=== PATIENT | female | born 1955 | race Caucasian/White ===

== ENCOUNTER 2023-05-11 13:50 | Emergency (ER) | payer MEDICARE, OTHER, SELFPAY ==
[2023-05-11 14:01] VITALS: BP 126/80
--- NOTE | 2023-05-11 15:14 | ED.GENMED ---
History of Present Illness
General
Chief Complaint: Weakness
Time Seen by Provider: 05/11/23 14:51
Travel History
Have you had any contact with someone who has COVID-19?: No
Do you have any symptoms of coronavirus? Fever > 100 degrees, chills, cough, shortness of breath, sore throat, loss of taste or smell, muscle aches, or headache?: No
History of Present Illness
History of Present Illness:
67-year-old female presents the emergency department for evaluation of paresthesias to bilateral lower legs over the past week. She states the symptoms initially affected the feet and ankles but now are trending upward toward the gluteal region.
She also reports general weakness but has no difficulty walking. She denies any recent flu or COVID vaccinations within the past 4 to 6 weeks. Denies any recent upper respiratory tract infections. Denies any associated fevers or chills. No new
medications whatsoever. Has been newly diagnosed with 'long COVID' by neurology at [facility]
Past History
Past History
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
ED Past Surgical History: and Other
Social History
Tobacco: Non-smoker
Alcohol: None
Personal: Single
Living: alone
Employment: Retired
Family History
Family History: Other (mother with hypertension)
Review of Systems
Review of Systems
Allergies reviewed?: Yes
All Other Systems: ROS reviewed and negative except as documented in HPI and ROS
Phy Exam
Physical Exam
Physical Exam:
GEN: Well appearing, NAD, WDWN
HEENT: Oral mucosa moist, no scleral icterus, no nasal congestion
Cardiac: Regular rate
Lung: No respiratory distress, no tachypnea
MSK: No gross deformity or injuries
Skin: Good color, no pallor or jaundice, no rashes
Neuro: AO x3; CN II-XII grossly intact. BUE strength 5/5 in all meng, sensation intact and symmetric. BLE strength 5/5 in all meng, sensation intact and symmetric. Patellar reflexes 2+ bilaterally, gait steady with no deficit
Psych: Calm, cooperative
Course
Vital Signs
Initial and Last Documented VS:
Initial Vital Signs
Temp Pulse Resp BP Pulse Ox
97.9 F 100 18 126/80 98
05/11/23 14:01 05/11/23 14:01 05/11/23 14:01 05/11/23 14:01 05/11/23 14:01
Last Documented Vital Signs
Temp Pulse Resp BP Pulse Ox
97.9 F 84 18 122/63 99
05/11/23 14:01 05/11/23 15:45 05/11/23 15:45 05/11/23 15:45 05/11/23 15:45
MDM/Problems Addressed
MDM/Problems Addressed:
Patient with no objective neurologic deficits on physical exam. Certainly the presentation of ascending paresthesias concerning for Guillain-Arenas� syndrome, although she has no preceding viral illness or vaccination to suggest the source of this.
I discussed the case with neurology on-call who feels that the risk of lumbar puncture and IVIG is too great at this time given lack of disabling deficits. Patient will be discharged outpatient neurologic follow-up, educated her regarding bladder
symptoms that could be a warning sign of ascending symptoms versus worsening gait deficit that would prompt ED evaluation
*Critical Care Note
Total Time (30-74mins, 75-104mins- exclusive of procedures): Not Applicable
ED Attending Note
-
Portions of this chart may have been created with voice recognition software.� Occasional wrong word or��sound alike� substitutions may have occurred due to the inherent limitations of voice recognition software.
Discharge Plan
Departure
Patient Disposition: Home (Routine Discharge)
Date of Disposition: 05/11/23
Time of Disposition: 15:25
Patient with high blood pressure during this ER visit?: No
Discharge Problem:
Bilateral leg paresthesia
Instructions: Paresthesia (DC)
Prescriptions:
No Action
citalopram 20 MG tablet
40 mg PO DAILY
montelukast 10 MG tablet
10 mg PO QPM
prednisone 10 MG tablet
10 mg PO DAILY
bupropion HCl 100 MG tablet
100 mg PO DAILY
albuterol sulfate [ProAir RespiClick] 90 MCG aerosol powdr breath activated
2 inh inhalation PRN PRN (Reason: sob)
acetaminophen 325 MG tablet
650 mg PO Q4H PRN (Reason: pain)
mometasone-formoterol [Dulera] 1 PUFF HFA aerosol inhaler
2 puff inhalation BID
oxycodone 5 MG tablet
5 mg PO Q4HPRN PRN (Reason: breakthrough/severe pain) Qty: 10 0RF
hydrocortisone 10 MG tablet
25 mg PO Q6H Qty: 22 0RF
oxycodone-acetaminophen 5 MG/325 MG tablet
1 tab PO Q6HPRN PRN (Reason: pain) Qty: 12 0RF
Activity Restrictions/Additional Instructions:
At this point the cause of your symptoms is not clear however there are no obvious neurologic deficits on your exam
Guillain-Arenas� syndrome remains a possibility however at this point the risk of a lumbar puncture and treatment far exceeds the potential benefits given your lack of severe symptoms
Please monitor for worsening to include continued progression of numbness toward the face, loss of bladder or bowel function including retention of urine, or difficulty walking; if any of the symptoms develop return to the emergency department for
reevaluation immediately
Follow-up as an outpatient with your [place] neurologist
Interventions
Interventions:
*Risk Screen - Suicide Last Done: 05/11/23 14:01
*General Assessment Last Done: 05/11/23 14:01
*Neglect/Abuse Screening Last Done: 05/11/23 14:01
ED- Fall Risk Assessment Last Done: 05/11/23 15:45
*ED COVID-19 Vaccine History Last Done: 05/11/23 14:07
*Nursing Disposition Last Done: 05/11/23 15:45
ED- Cardiac Assessment Last Done: 05/11/23 15:45
ED- Neurological Assessment Last Done: 05/11/23 15:45
ED- Pulmonary Assessment Last Done: 05/11/23 15:45
Discharge Date and Time
Discharge Date/Time: 05/11/23 15:51
[2023-05-11 15:45] VITALS: BP 122/63
== END 2023-05-11 15:51 | disposition home or self-care (01) ==
LOC: EMR 13:50
PROVIDERS: EMERGENCY PHYSICIAN Emergency Medicine; FAMILY PHYSICIAN Nurse Practitioner Adult Health
DX: R20.2 Paresthesia of skin (principal); R53.1 Weakness
CPT/HCPCS: 99282

== ENCOUNTER 2023-12-20 14:34 | Emergency (ER) | payer MEDICARE, OTHER, SELFPAY ==
[2023-12-20 14:37] VITALS: BP 117/96
[2023-12-20 15:09] LABS: % Basophils 0.1 % (0-2); % Immature Granulocytes 0.1 % (0-0.5); % Lymphocytes 29.1 % (20.5-51.1); % Neutrophils 65.7 % (42.2-75.2); Absolute Lymphocytes 2.5 10^3/uL (1.2-3.4); Absolute Monocytes 0.4 10^3/uL (0.1-0.6); Absolute Neutrophils 5.5 10^3/uL (1.4-6.5); Hematocrit 36.4 % (37.0-47.0); Hemoglobin 12.5 g/dL (12.0-16.0); Mean Corp Hgb Conc. 34.3 g/dL (33.0-37.0); Mean Corpuscular Hgb 31.1 pg (27.0-31.0); Mean Corpuscular Volume 90.5 fL (81.0-99.0); Mean Platelet Volume 9.2 fL (7.4-10.4); Nucleated Red Blood Cells % 0 %; Platelet Count 372 10^3/uL (130-400); Red Blood Cell Count 4.02 10^6/uL (4.20-5.40); Red Cell Dist. Width 12.4 % (11.5-14.5); White Blood Cell Count 8.4 10^3/uL (4.8-10.8)
[2023-12-20 15:16] LABS: ALT (SGPT) 22 U/L (0-35); AST (SGOT) 23 U/L (14-36); Albumin 4.5 g/dl (3.5-5.0); Alkaline Phosphatase 62 U/L (38-126); Blood Urea Nitrogen 23 mg/dl (7-17); Calcium 9.8 mg/dl (8.4-10.2); Carbon Dioxide 24 mmol/L (22-30); Chloride 104 mmol/L (98-107); Glucose 118 mg/dl (70-99); Potassium 4.7 mmol/L (3.5-5.1); Sodium 143 mmol/L (135-145); Total Bilirubin 0.5 mg/dl (0.2-1.3); Total Protein 7.1 g/dl (6.3-8.2); eGFR > 60.00
[2023-12-20 16:15] VITALS: BMI 22.7
[2023-12-20 16:18] VITALS: BP 134/76
--- NOTE | 2023-12-20 16:20 | EDRN ---
Dr. Mauricio in room w/pt at this time.
--- NOTE | 2023-12-20 16:34 | ED.GENMED ---
History of Present Illness
General
Chief Complaint: Fatigue
Source: patient
Exam Limitations: none
Time Seen by Provider: 12/20/23 15:52
Nursing documentation reviewed up to this point in time: agreed with
History of Present Illness
History of Present Illness:
Patient with history of adrenal insufficiency diagnosed 3 years ago and eosinophilic asthma, presents to ED secondary to worsening generalized fatigue, weakness, muscle pain, along with intermittent vomiting, after she was taken off prednisone 2
weeks ago. Patient states that she has been on prednisone for the past 5 years to control her symptoms related to eosinophilic asthma. Finally, when her symptoms improved significantly, her aviation medicine specialist at [facility]
decided that she should be tapered off prednisone. Since prednisone was discontinued, approximately 2 days afterwards, patient started to experience aforementioned symptoms. Patient spoke with her aviation medicine specialist yesterday who explained to the
patient that she may be experiencing prednisone withdrawal symptoms. Patient's aviation medicine specialist is currently working to schedule appointment with an plastic tool maker for patient to receive formal consultation. Denies fever or chills. Denies chest
pain or shortness of breath. Denies back pain. However, patient does report decreased appetite and feels dehydrated.
Past History
Past History
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
ED Past Surgical History: and Other
Social History
Tobacco: Non-smoker
Alcohol: None
Personal: Single
Living: alone
Employment: Retired
Family History
Family History: Other (mother with hypertension)
Review of Systems
Review of Systems
Allergies reviewed?: Yes
All Other Systems: ROS reviewed and negative except as documented in HPI and ROS
Constitutional: Reports no symptoms; Denies fever
Respiratory: Reports no symptoms; Denies trouble breathing
Cardiac: Reports no symptoms; Denies chest pain
ABD/GI: Reports nausea and vomiting; Denies abdominal pain
Musculoskeletal: Reports muscle pain
Skin: Reports no symptoms
Neurological: Reports weakness
Phy Exam
Physical Exam
Physical Exam:
Physical Exam
General: no apparent distress, not acutely ill. afebrile
Head: nc/at. eomi
Neck: supple. no meningeal signs.
Heart: s1/s2 regular rate and rhythm, no murmur. equal radial pulses.
Lungs: no acute respiratory distress. clear bilaterally
Abdomen: normal bowel sounds. not tender. no distention
Neuro: alert and oriented. no focal neurological deficits
Skin: no rash
Psychiatric: well kept. interactive and cooperative
Extremities: no edema. no calf tenderness.
Course
Orders/Labs/Results
Orders:
Orders
12/20/23 14:48
Complete Blood Count/With Diff Urgent
Comprehensive Metabolic Panel Urgent
Cortisol, Random Urgent
Comment: ADD ON
Magnesium Urgent
Comment: ADD ON
TSH Reflex To Free T4 Urgent
Comment: ADD PN
12/20/23 16:31
Add On- LAB Urgent
Tests Added?: magnesium, TSH to reflex Free T4, random cortisol level
0.9% Sodium Chloride 1000 ml [Nss] 1,000 ml IV BOLUS
Abnormal Lab Results
12/20/23
14:48
RBC 4.02 L 10^6/uL
(4.20-5.40)
Hct 36.4 L %
(37.0-47.0)
MCH 31.1 H pg
(27.0-31.0)
BUN 23 H mg/dl
(7-17)
Glucose 118 H mg/dl
(70-99)
12/20/23 14:48
12/20/23 14:48
Vital Signs
Initial and Last Documented VS:
Initial Vital Signs
Temp Pulse Resp BP Pulse Ox
97.6 F 104 18 117/96 99
12/20/23 14:37 12/20/23 14:37 12/20/23 14:37 12/20/23 14:37 12/20/23 14:37
Last Documented Vital Signs
Temp Pulse Resp BP Pulse Ox
97.6 F 75 16 131/78 98
12/20/23 14:37 12/20/23 17:14 12/20/23 16:18 12/20/23 17:14 12/20/23 17:14
MDM/Problems Addressed
MDM/Problems Addressed:
History and exam consistent with likely steroid withdrawal symptoms. Fortunately, patient is afebrile, hemodynamically stable, and without any acute neurological symptoms. Blood work, including CBC and metabolic panel, within normal limits. After
discussion, decision made to start the patient back on low-dose of prednisone, along with outpatient follow-up. Patient will be given IV fluids prior to discharge.
*Critical Care Note
Total Time (30-74mins, 75-104mins- exclusive of procedures): Not Applicable
ED Attending Note
-
Portions of this chart may have been created with voice recognition software.� Occasional wrong word or��sound alike� substitutions may have occurred due to the inherent limitations of voice recognition software.
Discharge Plan
Departure
Patient Disposition: Home (Routine Discharge)
Date of Disposition: 12/20/23
Time of Disposition: 17:08
Patient with high blood pressure during this ER visit?: Yes
Discharge Problem:
Adrenal insufficiency due to steroid withdrawal
Instructions: Drug Withdrawal (DC)
Prescriptions:
New
prednisone 5 mg tablet
5 mg PO DAILY Qty: 14 0RF
No Action
citalopram 20 MG tablet
40 mg PO DAILY
montelukast 10 MG tablet
10 mg PO QPM
prednisone 10 MG tablet
10 mg PO DAILY
bupropion HCl 100 MG tablet
100 mg PO DAILY
albuterol sulfate [ProAir RespiClick] 90 MCG aerosol powdr breath activated
2 inh inhalation PRN PRN (Reason: sob)
acetaminophen 325 MG tablet
650 mg PO Q4H PRN (Reason: pain)
mometasone-formoterol [Dulera] 1 PUFF HFA aerosol inhaler
2 puff inhalation BID
oxycodone 5 MG tablet
5 mg PO Q4HPRN PRN (Reason: breakthrough/severe pain) Qty: 10 0RF
hydrocortisone 10 MG tablet
25 mg PO Q6H Qty: 22 0RF
oxycodone-acetaminophen 5 MG/325 MG tablet
1 tab PO Q6HPRN PRN (Reason: pain) Qty: 12 0RF
Referrals:
Susanna March CRNP [Family Provider] -
Activity Restrictions/Additional Instructions:
As discussed, please follow-up with your aviation medicine specialist and/or plastic tool maker for further evaluation and treatment. Your prescription has been sent electronically to [facility] pharmacy in [place]
Interventions
Interventions:
*Risk Screen - Suicide Last Done: 12/20/23 14:37
*General Assessment Last Done: 12/20/23 14:37
*Neglect/Abuse Screening Last Done: 12/20/23 14:37
ED- Fall Risk Assessment Last Done: 12/20/23 16:15
*ED COVID-19 Vaccine History Last Done: 12/20/23 16:15
*Nursing Disposition Last Done: 12/20/23 16:50
Discharge Date and Time
Discharge Date/Time: 12/20/23 18:02
Print Language: SAMI
[2023-12-20] MEDS: NSS 1000 IV (16:47)
--- NOTE | 2023-12-20 17:03 | EDRN ---
Pt will be going to RP consult room at this time w/report given to Epifanio at this time. Pt is pending discharge after IVF bolus of 1L of NSS.
[2023-12-20 17:14] VITALS: BP 131/78
[2023-12-20 19:13] LABS: Cortisol, Random 11.1 ug/dl; TSH Reflex To Free T4 0.66 uIU/ml (0.47-4.68)
== END 2023-12-20 18:02 | disposition home or self-care (01) ==
LOC: EMR 14:34
PROVIDERS: Emergency Medicine; EMERGENCY PHYSICIAN Emergency Medicine; FAMILY PHYSICIAN Nurse Practitioner Adult Health
DX: R53.83 Other fatigue (principal); E27.3 Drug-induced adrenocortical insufficiency; T38.0X5A Adverse effect of glucocorticoids and synthetic analogues, initial encounter; Y92.9 Unspecified place or not applicable; J82.83 Eosinophilic asthma; K21.9 Gastro-esophageal reflux disease without esophagitis; Z82.49 Family history of ischemic heart disease and other diseases of the circulatory system
CPT/HCPCS: 96360; 80053; 82533; 83735; 84443; 85025; 99283

== ENCOUNTER → 2024-04-18 11:31 | Outpatient (REF) | payer MEDICARE, OTHER, SELFPAY | LOC: RAD 11:31 | PROVIDERS: ATTENDING PHYSICIAN Registered Nurse | DX: R06.02 Shortness of breath (principal); J47.9 Bronchiectasis, uncomplicated | CPT/HCPCS: 71046 ==

== ENCOUNTER → 2025-02-19 13:56 | Outpatient (REF) | payer MEDICARE, OTHER, SELFPAY | LOC: RAD 13:56 | PROVIDERS: ATTENDING PHYSICIAN Physician Assistant; FAMILY PHYSICIAN Nurse Practitioner Adult Health | DX: M81.0 Age-related osteoporosis without current pathological fracture (principal); R29.890 Loss of height; Z79.52 Long term (current) use of systemic steroids | CPT/HCPCS: 72070; 72100 ==